=== PATIENT | male | born 1990 | race Caucasian/White ===

== ENCOUNTER 2019-08-13 17:24 | Emergency (ER) | payer OTHER ==
[~2019-08-13] VITALS: Ht 195.6 cm; Wt 83.9 kg
[2019-08-13] MEDS ORDERED: KEFLEX500 M1 PO (17:48)
[2019-08-13 18:14] VITALS: BP 134/77
== END 2019-08-13 18:15 | disposition home or self-care (01) ==
LOC: M.ERS 17:24
DX: S01.112A Laceration without foreign body of left eyelid and periocular area, initial encounter (principal); W51.XXXA Accidental striking against or bumped into by another person, initial encounter; Y93.67 Activity, basketball; Y92.89 Other specified places as the place of occurrence of the external cause; Y99.8 Other external cause status

== ENCOUNTER 2019-09-03 15:54 | Emergency (ER) | payer OTHER ==
[~2019-09-03] VITALS: Ht 195.6 cm; Wt 83.9 kg
[~2019-09-03 15:54] MED LIST: KEFLEX500 M1 PO
[2019-09-03 16:23] VITALS: BP 110/60
== END 2019-09-03 16:25 | disposition home or self-care (01) ==
LOC: M.ERS 15:54
DX: S01.112D Laceration without foreign body of left eyelid and periocular area, subsequent encounter (principal); X58.XXXD Exposure to other specified factors, subsequent encounter

== ENCOUNTER 2019-11-13 04:48 | Emergency (ER) | payer OTHER ==
[~2019-11-13] VITALS: Ht 195.6 cm; Wt 81.7 kg
[2019-11-13 04:56] VITALS: BP 120/62
[2019-11-13] MEDS ORDERED: TRAMADOL 50 MG50 MG PO (05:03)
[2019-11-13] MEDS ORDERED: MAGIC MOUTHWASH SWISH&SPIT (05:03)
[2019-11-13] MEDS ORDERED: AMOXICILLIN 50500 MG PO (05:03)
== END 2019-11-13 05:10 | disposition home or self-care (01) ==
LOC: M.ERS 04:48
DX: K12.1 Other forms of stomatitis (principal); K02.9 Dental caries, unspecified